=== PATIENT | male | born 1955 | race Caucasian/White ===

== ENCOUNTER 2022-05-26 19:32 | Emergency (ER) | payer MEDICARE, OTHER ==
[~2022-05-26] VITALS: Ht 162.6 cm; Wt 68.0 kg
--- NOTE | 2022-05-26 19:32 | NUR ---
PT JULI DAMICO, PREBOOK. TAKEN TO ER CHAIR
[2022-05-26 19:45] VITALS: BP 127/86
--- NOTE | 2022-05-26 20:05 | NUR ---
Dr. Osborn examining patient.
--- NOTE | 2022-05-26 20:32 | NUR ---
PT RETURN FROM CT
--- NOTE | 2022-05-26 21:10 | NUR ---
PATIENT BIB [employer] [employer]. PATIENT EXAMINED BY . PATIENT MEDICALLY CLEARED AND RELEASED IN CUSTODY IN STABLE CONDITION. ORIGINAL PRE-BOOK FORM GIVEN TO OFFICER .AKHIL [id number] Patient discharged with v/s stable. Written and verbal after care instructions given and explained. Patient verbalized understanding. Police with in custody. All questions addressed prior to discharge. Advised to follow up with PMD.
[2022-05-26 21:35] VITALS: BP 127/86
== END 2022-05-26 21:10 ==
LOC: MED 19:32
DX: S00.83XA Contusion of other part of head, initial encounter (principal); F10.129 Alcohol abuse with intoxication, unspecified; R82.998 Other abnormal findings in urine; Y90.9 Presence of alcohol in blood, level not specified; W18.39XA Other fall on same level, initial encounter; Y92.89 Other specified places as the place of occurrence of the external cause; Y93.89 Activity, other specified; Y99.8 Other external cause status
CPT/HCPCS: 70450; 99284